=== PATIENT | male | born 2005 | race Two or more races ===

== ENCOUNTER 2025-01-18 15:30 | Outpatient (RCR) | payer MEDICAID, SELFPAY ==
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
--- NOTE | 2025-01-09 15:57 | PT.ODAYNRPT ---
PT Outpatient Daily Note OP Daily Note Outpatient Physical Therapy Treatment Date: 01/09/25 Visit Reasons: left elbow surgery Subjective: Pt wants to be clear to start working out. Pt's elbow is doing okay. Objective: Please see flow chart for list of ther ex perfomed Assessment: tolerate exercises with minimal pain and difficulty with hand exercises due to fatigue Plan: Continue with PT Length of Time (minutes) of Treatment: 30 Minutes Procedure Charges Therapeutic Exercise 30 minutes: Yes
--- NOTE | 2025-01-11 15:48 | PT.ODAYNRPT ---
PT Outpatient Daily Note OP Daily Note Outpatient Physical Therapy Treatment Date: 01/11/25 Visit Reasons: left elbow surgery Subjective: Pt's elbow was a little sore after last session. Pt does not have any new concerns. Objective: Please see flow chart for list of ther ex performed Assessment: less cues given today to correct form with shoulder and elbow TB exercises Plan: Continue with PT Length of Time (minutes) of Treatment: 30 Minutes Procedure Charges Therapeutic Exercise 30 minutes: Yes
--- NOTE | 2025-01-18 16:24 | PT.ODAYNRPT ---
PT Outpatient Daily Note OP Daily Note Outpatient Physical Therapy Treatment Date: 01/18/25 Visit Reasons: left elbow surgery Subjective: No new complaints. Objective: Please see flow sheet for the reji list. Assessment: Focus on restoring ROM. Plan: Continue with pOC per protocol. Length of Time (minutes) of Treatment: 30 Minutes Procedure Charges Therapeutic Exercise 30 minutes: Yes
== END 2025-01-23 23:59 | disposition home or self-care (01) ==
LOC: CPTX 15:30
PROVIDERS: PCP Orthopaedic Surgery; Referring Provider Orthopaedic Surgery; Visit Provider Orthopaedic Surgery
DX: M25.522 Pain in left elbow (principal); R53.1 Weakness; S42.492D Other displaced fracture of lower end of left humerus, subsequent encounter for fracture with routine healing; V89.2XXD Person injured in unspecified motor-vehicle accident, traffic, subsequent encounter
CPT/HCPCS: 97110; 97162

== ENCOUNTER → 2025-01-23 | Outpatient (CLI) | payer MEDICAID, SELFPAY ==
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
== END | disposition home or self-care (01) ==
LOC: CDIM 16:23
PROVIDERS: Referring Provider Orthopaedic Surgery; Visit Provider Orthopaedic Surgery
DX: S59.902A Unspecified injury of left elbow, initial encounter (principal); V49.49XA Driver injured in collision with other motor vehicles in traffic accident, initial encounter
CPT/HCPCS: 73070

== ENCOUNTER 2025-02-20 15:00 | Outpatient (RCR) | payer MEDICAID, SELFPAY ==
--- NOTE | 2025-01-31 15:18 | PT.ODAYNRPT ---
PT Outpatient Daily Note OP Daily Note Outpatient Physical Therapy Treatment Date: 01/31/25 Visit Reasons: Left elbow surgery Subjective: Pt reports feels progress with elbow but slow. Pt mentioned he has returned to work. Objective: Please see flow sheet for ther ex list. Assessment: Pt c/o muscle fatigue , denied cold pack at end of session. Plan: Continue with poC. Length of Time (minutes) of Treatment: 30 Minutes Procedure Charges Therapeutic Exercise 30 minutes: Yes
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
--- NOTE | 2025-02-16 16:24 | PT.ODAYNRPT ---
PT Outpatient Daily Note OP Daily Note Outpatient Physical Therapy Treatment Date: 02/16/25 Visit Reasons: Left elbow surgery Subjective: Pt reports elbow is stiff, pt mentioned he is not doing any HEP or stretches at home at this time. Objective: Please see flow sheet for ther ex list. Assessment: Pt instructed on HEP and encouraged to perform for HEP, pt agreed. Plan: Continue with POC. Length of Time (minutes) of Treatment: 30 Minutes Procedure Charges Therapeutic Exercise 30 minutes: Yes
--- NOTE | 2025-02-20 15:27 | PT.ODAYNRPT ---
PT Outpatient Daily Note OP Daily Note Outpatient Physical Therapy Treatment Date: 02/20/25 Visit Reasons: Left elbow surgery Subjective: Pt's elbow stiff and unable to make it more straight than it is. Pt wants to resume boxing if able. 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 Pt was instructed to continue elbow stretching at home to improve extension lag. Pt gave verbal consent and understanding Plan: Continue with PT Length of Time (minutes) of Treatment: 30 Minutes Procedure Charges Therapeutic Exercise 30 minutes: Yes
== END 2025-02-23 23:59 | disposition home or self-care (01) ==
LOC: CPTX 15:00
PROVIDERS: PCP Orthopaedic Surgery; Referring Provider Orthopaedic Surgery; Visit Provider Orthopaedic Surgery
DX: M25.522 Pain in left elbow (principal); R53.1 Weakness; S42.492D Other displaced fracture of lower end of left humerus, subsequent encounter for fracture with routine healing; V89.2XXD Person injured in unspecified motor-vehicle accident, traffic, subsequent encounter
CPT/HCPCS: 97110

== ENCOUNTER 2025-03-23 15:00 | Outpatient (RCR) | payer MEDICAID, SELFPAY ==
--- NOTE | 2025-03-08 15:49 | PT.ODAYNRPT ---
PT Outpatient Daily Note OP Daily Note Outpatient Physical Therapy Treatment Date: 03/08/25 Visit Reasons: left elbow surgery Subjective: Pt reports L elbow is doing better, has been compliant with HEp. Objective: Please see flow sheet for ther ex list. Assessment: Performed PROM of L elbow, ROM slowly progressing. Plan: Continue with POC. Length of Time (minutes) of Treatment: 30 Minutes Procedure Charges Therapeutic Exercise 30 minutes: Yes
--- NOTE | 2025-03-14 16:04 | PT.ODS1RPT ---
PT OP Progress/Discharge Note Date of Service: 03/14/25 Progress Note/DC Note Progress Note/Discharge Note: Progress Note Patient Information Visit Reasons: left elbow surgery Medical Diagnosis: s42.492a; m25.522 Treatment Dx #1: Left Elbow Mobility Deficits Treatment Dx #2: Left Elbow Weakness Service Continue Service or Discharge: Continue Service Certification Date Certification Dates: 03/14/25 to 06/14/25 Status Subjective: Pt's elbow feels much better. Pt still has difficulty with fully extending the elbow. Pt has been able to resume most ADLs, chores, self care, and lifting activities. Pt still has limitation with work duties, heavy lifting, and performing recreational activities. 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 Pt is progressing well with goals and will continue to benefit from additional physical therapy session to work on increasing elbow extension; thank you for your referrals. Plan: Continue with PT/POC and add 6 sessions (2 x wk for 3 wks) Procedure Charges Therapeutic Exercise 30 minutes: Yes
--- NOTE | 2025-03-16 16:06 | PT.ODAYNRPT ---
PT Outpatient Daily Note OP Daily Note Outpatient Physical Therapy Treatment Date: 03/16/25 Visit Reasons: left elbow surgery Subjective: Pt's elbow really sore after last session. Pt has been focusing on trying to keep his elbow straight with tasks. Objective: Please see flow chart for list of ther ex performed Assessment: tolerate exercises with minimal pain today. Review elbow stretching with patient today to help increase or maintain elbow extension Plan: Continue with PT Length of Time (minutes) of Treatment: 30 Minutes Procedure Charges Therapeutic Exercise 30 minutes: Yes
--- NOTE | 2025-03-20 16:03 | PT.ODAYNRPT ---
PT Outpatient Daily Note OP Daily Note Outpatient Physical Therapy Treatment Date: 03/20/25 Visit Reasons: left elbow surgery Subjective: Pt reports L elbow is doing better, notices flexibility improving. Objective: Please see flow sheet for ther ex list. Assessment: ROm of L elbow continues to improve, progressing functional strengthening within pt tolerance. Plan: Continue with poC. Length of Time (minutes) of Treatment: 30 Minutes Procedure Charges Therapeutic Exercise 30 minutes: Yes
--- NOTE | 2025-03-23 15:27 | PT.ODAYNRPT ---
PT Outpatient Daily Note OP Daily Note Outpatient Physical Therapy Treatment Date: 03/23/25 Visit Reasons: left elbow surgery Subjective: Pt's elbow is stiff intermittently at work. Pt notice elbow more straight on his rest days without work Objective: Please see flow chart for list of ther ex performed Assessment: slow progression with elbow extension AROM; able to tolerate LLPS longer with 2# weight Plan: Continue with PT Length of Time (minutes) of Treatment: 30 Minutes Procedure Charges Therapeutic Exercise 30 minutes: Yes
== END 2025-03-26 23:59 | disposition home or self-care (01) ==
LOC: CPTX 15:00
PROVIDERS: PCP Orthopaedic Surgery; Referring Provider Orthopaedic Surgery; Visit Provider Orthopaedic Surgery
DX: M25.522 Pain in left elbow (principal); R53.1 Weakness; S42.492D Other displaced fracture of lower end of left humerus, subsequent encounter for fracture with routine healing; V89.2XXD Person injured in unspecified motor-vehicle accident, traffic, subsequent encounter
CPT/HCPCS: 97110

== ENCOUNTER 2025-03-29 15:03 | Outpatient (RCR) | payer MEDICAID, SELFPAY ==
--- NOTE | 2025-03-29 16:05 | PT.ODAYNRPT ---
PT Outpatient Daily Note OP Daily Note Outpatient Physical Therapy Treatment Date: 03/29/25 Visit Reasons: LEFT ELBOW SURGERY Subjective: Pt's elbow is less sensitive. Pt still notice no improvement with elbow extension, however, wants to continue PT. Objective: Please see flow chart for list of ther ex performed Assessment: tolerate exercises performed. minimal changes with elbow extension noted prior to PT session. Pt advised to continue LLPS at home as PT attempt to get further authorization via insurance. Pt gave verbal understanding and consent. Plan: Continue with PT Length of Time (minutes) of Treatment: 30 Minutes Procedure Charges Therapeutic Exercise 30 minutes: Yes
== END 2025-04-25 23:59 | disposition home or self-care (01) ==
LOC: CPTX 15:03
PROVIDERS: PCP Orthopaedic Surgery; Referring Provider Orthopaedic Surgery; Visit Provider Orthopaedic Surgery
DX: M25.522 Pain in left elbow (principal); R53.1 Weakness; S42.492D Other displaced fracture of lower end of left humerus, subsequent encounter for fracture with routine healing; V89.2XXD Person injured in unspecified motor-vehicle accident, traffic, subsequent encounter
CPT/HCPCS: 97110

== ENCOUNTER 2025-05-18 15:54 | Outpatient (RCR) | payer MEDICAID, SELFPAY ==
--- NOTE | 2025-05-18 16:32 | PT.ODAYNRPT ---
PT Outpatient Daily Note OP Daily Note Outpatient Physical Therapy Treatment Date: 05/18/25 Visit Reasons: fx left humerus Subjective: Pt reports elbow is doing ok, has been hurting more and feels elbow is stiff at times. Objective: Please see flow sheet for ther ex list. Assessment: Pt encouraged to perform stretches for HEP. Plan: Continue with POC. Length of Time (minutes) of Treatment: 30 Minutes Procedure Charges Therapeutic Exercise 30 minutes: Yes
== END 2025-05-26 23:59 | disposition home or self-care (01) ==
LOC: CPTX 15:54
PROVIDERS: PCP Orthopaedic Surgery; Referring Provider Orthopaedic Surgery; Visit Provider Orthopaedic Surgery
DX: M25.522 Pain in left elbow (principal); R53.1 Weakness; S42.402D Unspecified fracture of lower end of left humerus, subsequent encounter for fracture with routine healing; V89.2XXD Person injured in unspecified motor-vehicle accident, traffic, subsequent encounter
CPT/HCPCS: 97110

== ENCOUNTER 2025-06-15 16:00 | Outpatient (RCR) | payer MEDICAID, SELFPAY ==
--- NOTE | 2025-06-01 16:50 | PT.ODAYNRPT ---
PT Outpatient Daily Note OP Daily Note Outpatient Physical Therapy Treatment Date: 06/01/25 Visit Reasons: FX left femurs Subjective: Pt reports L elbow is moving better but not able to reach full range. Objective: Please see flow sheet for ther ex list. Assessment: Performed PROM to L elbow within pt tolerance. Plan: Continue with poC. Length of Time (minutes) of Treatment: 30 Minutes Procedure Charges Therapeutic Exercise 30 minutes: Yes
--- NOTE | 2025-06-15 16:43 | PT.ODAYNRPT ---
PT Outpatient Daily Note OP Daily Note Outpatient Physical Therapy Treatment Date: 06/15/25 Visit Reasons: FX left femurs Subjective: Pt reports elbow is progressing overall. Objective: Please see flow sheet for ther ex list. Assessment: Continue with focus on restoring ROM and functional strength. Plan: Continue with poC. Length of Time (minutes) of Treatment: 30 Minutes Procedure Charges Therapeutic Exercise 30 minutes: Yes
--- NOTE | 2025-07-03 13:50 | PT.ODS1RPT ---
PT OP Progress/Discharge Note Date of Service: 07/03/25 Progress Note/DC Note Progress Note/Discharge Note: DC Note Patient Information Visit Reasons: FX left femurs Service Discharge Date: 07/03/25 Status Assessment: Pt has been seen for 16 visits (eval + 15 visits) inconsistently. Pt last treated on 06/15/25 and has not returned to therapy. Pt no showed 06/29/25 appt and will be d/c from care due to plan of care. Pt did not meet set goals in therapy; thank you for your referrals.
== END 2025-06-25 23:59 | disposition home or self-care (01) ==
LOC: CPTX 16:00
PROVIDERS: PCP Orthopaedic Surgery; Referring Provider Orthopaedic Surgery; Visit Provider Orthopaedic Surgery
DX: M25.522 Pain in left elbow (principal); R53.1 Weakness; S42.492D Other displaced fracture of lower end of left humerus, subsequent encounter for fracture with routine healing; V89.2XXD Person injured in unspecified motor-vehicle accident, traffic, subsequent encounter
CPT/HCPCS: 97110